=== PATIENT | female | born 1945 | race Caucasian/White ===

== ENCOUNTER → 2016-07-21 | Outpatient (CLI) | payer MEDICARE, OTHER ==
[~2016-07-21] MED LIST: AMBIEN CR PO; AVANDIA PO; CALTRATE PLUS T1 TAB PO; CANASA1000 MG/SU PR; CARDIZEM CD PO; COLAZAL750 MG PO; CRESTOR PO; EFFEXOR XR PO; ESTROVEN; FOLIC ACID PO; GAS-X166 MG PO; KCL PO; LIDODERM30 EA TOP; LORTAB 7.5-5001 TAB PO; MAXZIDE 75/50 T1 TAB PO; MULTI-VITAMIN1 TAB PO; NEXIUM PO; SYNTHROID PO; TOPROL XL PO; ZETIA PO
--- NOTE | ~2016-07-21 | XA30 ---
[facility] A Service of [facility] & [facility] RADIOLOGY TEXT RESULTS PATIENT: ENA BENSON LOCATION: [facility] : 49 UNIT #: [id number] AGE: [address]: Pato Boland MD SEX: F ORDER DR: [id number] [facility]. [place], [place] [address] [id number] O MR#: [id number] Acc #: [id number] NAME: ENA BENSON : 1945 SEX: F STUDY DATE/TIME: 07/21/2016 10:26 UNIT: [facility] ROOM: STUDY DESCRIPTION: XA Arthrocentesis Major Joint Attending Physician: Pato Boland M.D. Ordering Physician: Pato Boland M.D. Primary Care Physician: Aurea Julien M.D. MEDICAL IMAGING REPORT This report is preliminary unless electronic signature is present EXAM Right hip injection. INDICATIONS 70-year-old female with right hip pain. The fluoro time is 0.3 minutes. The reference air kerma is 3 mGy. The risks, benefits, and alternatives of the procedure were discussed with the patient and an informed consent was obtained. In the procedure room, time-out was performed confirming correct patient and procedure. All elements of maximum sterile-barrier technique utilized according to guidelines appropriate for the procedure. TECHNIQUE/FINDINGS Skin overlying the right hip was prepped and draped in the usual sterile fashion. 1% lidocaine was utilized to anesthetize the skin and underlying subcutaneous tissues. Next, under fluoroscopic guidance a 22-gauge needle was advanced into the hip joint space. A small amount of contrast was injected confirming satisfactory positioning. Next, 2 mL of 40 mg/mL Depo-Medrol followed by 3 mL of bupivacaine was injected into the hip joint space. The needle was removed and a sterile dressing was applied. No immediate complications. Pre-procedure pain was 6, postprocedure pain was 0. IMPRESSION Technically successful fluoroscopically-guided right hip joint injection with steroid and a local anesthetic. Dictated by... Florencio Daniels M.D. STS. [facility] A Service of [facility] & [facility] RADIOLOGY TEXT RESULTS PATIENT: ENA BENSON LOCATION: [facility] #: [id number] : [birth year] UNIT #: [id number] AGE: [address]: Pato Boland MD SEX: F ORDER DR: THIS IS AN ELECTRONICALLY VERIFIED REPORT Florencio Daniels M.D. at 07/24/2016 12:30 PM DENNIS/kesha TD: 07/21/2016 17:10 JOB #: [id number] MEDICAL IMAGING REPORT Page 1 of 1 COPY
== END | disposition home or self-care (01) ==
LOC: CIVR 09:52
PROC: 3E0U33Z Introduction of Anti-inflammatory into Joints, Percutaneous Approach (ICD-10-PCS; principal; 2016-07-21)
PROC: 3E0U3BZ Introduction of Anesthetic Agent into Joints, Percutaneous Approach (ICD-10-PCS; 2016-07-21)
DX: M16.11 Unilateral primary osteoarthritis, right hip (principal)
CPT/HCPCS: 77002; J1030; Q9966